=== PATIENT | female | born 1940 | race Caucasian/White ===

== ENCOUNTER 2024-01-11 07:43 | Emergency (ER) | payer MEDICARE, SELFPAY ==
[2024-01-11 07:50] VITALS: BP 138/87
--- NOTE | 2024-01-11 08:00 | ED.GENMED ---
History of Present Illness
General
Chief Complaint: Fall
Time Seen by Provider: 01/11/24 07:59
Travel History
Have you had any contact with someone who has COVID-19?: No
Do you have any symptoms of coronavirus? Fever > 100 degrees, chills, cough, shortness of breath, sore throat, loss of taste or smell, muscle aches, or headache?: No
History of Present Illness
History of Present Illness:
HPI: The patient was found down at her independent living facility at 6:30 AM and indicates that she slid out of bed. She was apparently seen in bed at 5 AM. Although she is reportedly history of dementia, she seems to be able to answer question
reliably and without difficulty. Although she has had urinary tract infections in the past, she does not think she has a urinary tract as she no longer has burning when she has had in the past
EXAM:
GENERAL: Well appearing in no distress
HEAD: No evidence of craniofacial trauma
C-SPINE: No midline C-spine tenderness
HEENT: Very slightly dry oral mucosa
CARDIOVASCULAR: No murmurs, normal heart rate, regular rhythm, No chest wall tenderness
PULMONARY: No respiratory distress, breath sounds are clear and equal
ABDOMEN: Soft with no peritoneal signs, no tenderness
NEUROLOGIC: Excellent strength all extremities, no coordination deficits
PSYCHIATRIC: Appropriate mental status, normal insight and judgement
EXTREMITIES: Nontender, no edema, moves all extremities equally with exception of the left upper extremity as she has 'muscle pain' which limits active range of motion of the left shoulder which is chronic
SKIN: No rash, no lesions
TIME OF INITIAL ENCOUNTER: 8:00 AM
NUMBER AND COMPLEXITY OF PROBLEMS ADDRESSED AT THE ENCOUNTER
� Chronic conditions affecting care: Dementia, high blood pressure, frequent UTI
� Acute Exacerbation and/or Progression of Chronic Illness: This is an acute problem
� Differential Diagnosis includes: UTI, dehydration, doubt intracranial hemorrhage as the patient denies striking her head
AMOUNT AND/OR COMPLEXITY OF DATA TO BE REVIEWED AND ANALYZED
� I performed an independent evaluation of and my interpretation is:
EKG:
CT:
X-rays:
Laboratory Studies: Urinalysis shows trace ketones but no evidence of infection
Other:
� Review of other/old records: I reviewed records, the patient was admitted for UTI (E. coli treated with Rocephin then Keflex) in June 2023 and at that time also had ambulatory dysfunction/right knee effusion
� Clinical information was obtained by an independent historian: EMS
� Prescriptions/Medications Considered but not given:
� Further testing considered but not performed:
RISK OF COMPLICATIONS AND/OR MORBIDITY OR MORTALITY OF PATIENT MANAGEMENT
� Social determinants of health affecting care: Resides in personal care at [facility]
� Discussion with other providers:
� Escalation of care including admission/observation vs risk of discharge considered: Although the patient has a history of dementia, she has no sign of dementia on physical examination currently. She knows that it is December and
she knows that she is at [facility] and gives a reliable history. Given her history, urinalysis is obtained which was a clean-catch specimen. Urinalysis shows no sign of infection but does show trace amount of ketones. She has been
tolerating oral fluid rehydration here. She denies any trauma.
Past History
Past History
ED Past Medical History: HTN and Other (Rheumatoid, vasculitis)
ED Past Surgical History: None; Negative Brain
Social History
Tobacco: Non-smoker
Alcohol: Occasional (Wine)
Drug: None
Personal:
Living: assisted living
Employment: Retired
Family History
Family History: Other (Noncontributory)
Phy Exam
Physical Exam
Physical Exam:
See HPI
Course
Orders/Labs/Results
Orders:
Orders
01/11/24 07:56
Urinalysis Reflex To Culture Urgent
Date Specimen was Collected: 01/11/24
Time Specimen was Collected: 07:53
Urine Microscopic Reflex Cult Urgent
Abnormal Lab Results
01/11/24
07:56
Urine Ketones Trace A
(Negative)
Ur Occult Blood Reflex 1+ A
(Negative)
Vital Signs
Initial and Last Documented VS:
Initial Vital Signs
Temp Pulse Resp BP Pulse Ox
98.5 F 97 16 138/87 97
01/11/24 07:50 01/11/24 07:50 01/11/24 07:50 01/11/24 07:50 01/11/24 07:50
Last Documented Vital Signs
Temp Pulse Resp BP Pulse Ox
98.5 F 97 16 138/87 97
01/11/24 07:50 01/11/24 07:50 01/11/24 07:50 01/11/24 07:50 01/11/24 07:50
*Critical Care Note
Total Time (30-74mins, 75-104mins- exclusive of procedures): Not Applicable
ED Attending Note
-
Portions of this chart may have been created with voice recognition software.� Occasional wrong word or��sound alike� substitutions may have occurred due to the inherent limitations of voice recognition software.
Discharge Plan
Departure
Patient Disposition: Home (Routine Discharge)
Date of Disposition: 01/11/24
Time of Disposition: 08:22
Patient with high blood pressure during this ER visit?: Yes
Discharge Problem:
Fall
Prescriptions:
No Action
folic acid 1 mg Tablet
1 mg PO DAILY
acetaminophen 325 mg Tablet
650 mg PO Q4H PRN (Reason: mild pain)
methotrexate sodium 2.5 mg tablet
10 mg PO TH
cyanocobalamin (vitamin B-12) [Vitamin B-12] 1,000 mcg Tablet, Sublingual
1,000 mcg SUBLINGUAL DAILY
Activity Restrictions/Additional Instructions:
With exception of slightly high blood pressure, your vital signs are normal. There is no sign of urinary tract infection. You may be just slightly dehydrated however not to the point that you would need an IV placed. Return here if worse.
Interventions
Interventions:
*Risk Screen - Suicide Last Done: 01/11/24 07:51
*General Assessment Last Done: 01/11/24 08:18
*Neglect/Abuse Screening Last Done: 01/11/24 07:51
ED- Fall Risk Assessment Last Done: 01/11/24 08:18
*ED COVID-19 Vaccine History Last Done: 01/11/24 07:51
ED-Musculoskeletal Assessment Last Done: 01/11/24 07:52
ED- Neurological Assessment Last Done: 01/11/24 07:52
ED-Skin Assessment Last Done: 01/11/24 08:18
Discharge Date and Time
Print Language: [id number]
[2024-01-11 08:04] LABS: Urine Albumin Trace (Neg - Trace); Urine Bilirubin Negative (Negative); Urine Character Clear (Clear); Urine Color Yellow; Urine Glucose Negative (Negative); Urine Ketone Trace (Negative); Urine Leukocyte Negative (Negative); Urine Nitrite Negative (Negative); Urine Occult Blood 1+ (Negative); Urine Urobilinogen Negative (Neg - 1+)
[2024-01-11 08:22] LABS: Urine Mucus Many
[2024-01-11 08:23] LABS: Urine Amorphous Seen
[2024-01-11 08:24] LABS: Urine Granular Cast 0-2 /LPF (0); Urine Red Blood Cell 0-2 /HPF (0-2)
[2024-01-11 09:00] VITALS: BP 141/76
== END 2024-01-11 10:09 | disposition home or self-care (01) ==
LOC: EMR 07:43
PROVIDERS: EMERGENCY PHYSICIAN Emergency Medicine; FAMILY PHYSICIAN Nurse Practitioner Gerontology
DX: M79.622 Pain in left upper arm (principal); W06.XXXA Fall from bed, initial encounter; I10 Essential (primary) hypertension; F03.90 Unspecified dementia, unspecified severity, without behavioral disturbance, psychotic disturbance, mood disturbance, and anxiety; Z87.440 Personal history of urinary (tract) infections
CPT/HCPCS: 99283; 81003; 81015

== ENCOUNTER → 2024-01-11 10:43 | Outpatient (REF) | payer MEDICARE, SELFPAY ==
[2024-01-11 11:38] LABS: % Basophils 0.4 % (0-2); % Eosinophils 0.4 % (0-6); % Immature Granulocytes 0.3 % (0-0.5); % Lymphocytes 9.3 % (20.5-51.1); % Monocytes 12.5 % (1.7-9.3); % Neutrophils 77.1 % (42.2-75.2); Absolute Monocytes 1.4 10^3/uL (0.1-0.6); Absolute Neutrophils 8.5 10^3/uL (1.4-6.5); Hematocrit 42.2 % (37.0-47.0); Mean Corp Hgb Conc. 33.2 g/dL (33.0-37.0); Mean Corpuscular Hgb 31.9 pg (27.0-31.0); Mean Corpuscular Volume 96.1 fL (81.0-99.0); Mean Platelet Volume 9.7 fL (7.4-10.4); Nucleated Red Blood Cells % 0 %; Platelet Count 247 10^3/uL (130-400); Red Blood Cell Count 4.39 10^6/uL (4.20-5.40); Red Cell Dist. Width 13.5 % (11.5-14.5)
[2024-01-11 11:55] LABS: Blood Urea Nitrogen 18 mg/dl (7-17); Carbon Dioxide 27 mmol/L (22-30); Chloride 102 mmol/L (98-107); Glucose 96 mg/dl (70-99); Potassium 3.8 mmol/L (3.5-5.1); Sodium 137 mmol/L (135-145); eGFR > 60.00
== END ==
LOC: OLABMERCHI 10:43
PROVIDERS: ATTENDING PHYSICIAN Hospitalist
DX: N39.0 Urinary tract infection, site not specified (principal); D64.9 Anemia, unspecified; R94.4 Abnormal results of kidney function studies
CPT/HCPCS: 36415; 80048; 85025; 87077; 87086